=== PATIENT | female | born 1995 | race Caucasian/White ===

== ENCOUNTER 2017-11-17 12:27 | Emergency (ER) | payer SELFPAY | END 2017-11-17 14:14 | disposition left against medical advice (07) | LOC: UCCORT 12:27 | DX: Z53.21 Procedure and treatment not carried out due to patient leaving prior to being seen by health care provider (principal) ==

== ENCOUNTER 2017-12-11 09:49 | Emergency (ER) | payer OTHER ==
[2017-12-11 11:06] VITALS: BP 117/70
[2017-12-11] MEDS ORDERED: predniSONE TAB* 20 MG PO ONE (12:10)
[2017-12-11] MEDS ORDERED: Albuterol HFA INHALER* 8 gm MDI INH ONE (12:10)
--- NOTE | 2017-12-11 12:20 | UC ---
Respiratory Complaint HPI - HPI Summary HPI Summary: 22 yo female with cough x 3 weeks initially had fever and chills no cp or sob she has been wheezing a smoker has had to use inhalers before cough is productive - History of Current Complaint Chief Complaint: UCRespiratory Stated Complaint: CHEST CONGESTION Time Seen by Provider: 12/11/17 12:01 Hx Obtained From: Patient Hx Last Menstrual Period: 11/22/17 Onset/Duration: Gradual Onset, Lasting Weeks Timing: Constant Severity Initially: Mild Severity Currently: Moderate Pain Intensity: 2 Pain Scale Used: 0-10 Numeric Character: Cough: Productive Aggravating Factors: Exertion, Deep Breaths Alleviating Factors: Nothing Associated Signs And Symptoms: Positive: Wheezing, Nasal Congestion Related History: Similar Episode/Dx as: - bronchitis - Allergies/Home Medications Allergies/Adverse Reactions: Allergies Allergy/AdvReac Type Severity Reaction Status Date / Time Venlafaxine [From Effexor] Allergy See Comment Verified 12/11/17 11:07 animals Allergy Congestion Uncoded 12/11/17 11:07 pollen, dust, dander Allergy Congestion Uncoded 12/11/17 11:07 Home Medications: Home Medications guaiFENesin ER TAB [Mucinex*] 600 mg PO DAILY PRN 12/11/17 [History Confirmed ] PMH/Surg Hx/FS Hx/Imm Hx Previously Healthy: Yes Respiratory History: Bronchitis, Pneumonia - Surgical History Surgical History: None Surgery Procedure, Year, and Place: bx of cervix - benign - Family History Known Family History: Positive: Respiratory Disease Negative: Cardiac Disease, Hypertension, Diabetes Family History: family hx of asthma- father and brother,. denies family hx of DM, HTN, CAD - Social History Alcohol Use: Occasionally Substance Use Type: Excessive Caffeine, Marijuana Substance Use Comment - Amount & Last Used: last night Smoking Status (MU): Light Every Day Tobacco Smoker Type: eCigarettes Amount Used/How Often: ~ 2-3 cigs per day Length of Time of Smoking/Using Tobacco: ~ 1 year Cessation Counseling: Patient Advised to Stop Review of Systems Constitutional: Negative Skin: Negative Eyes: Negative ENT: Negative Respiratory: Cough Cardiovascular: Negative Gastrointestinal: Negative Genitourinary: Negative Motor: Negative Neurovascular: Negative Musculoskeletal: Negative Neurological: Negative Psychological: Negative Is Patient Immunocompromised?: No All Other Systems Reviewed And Are Negative: No Physical Exam Triage Information Reviewed: Yes Appearance: Well-Appearing, No Pain Distress, Well-Nourished Vital Signs: Initial Vital Signs Temp 98.9 F 12/11/17 10:52 Pulse 70 12/11/17 10:52 Resp 20 12/11/17 10:52 BP 117/70 12/11/17 10:52 Pulse Ox 100 12/11/17 10:52 Vital Signs Reviewed: Yes ENT: Positive: Hearing grossly normal, TMs normal. Negative: Nasal congestion, Nasal drainage, Dental tenderness, Sinus tenderness Neck exam: Normal Neck: Positive: Supple, Nontender, No Lymphadenopathy Respiratory: Positive: No respiratory distress, No accessory muscle use, Wheezing Cardiovascular: Positive: RRR Abdominal Exam: Normal Musculoskeletal: Positive: ROM Intact, No Edema Neurological: Positive: Alert Psychological Exam: Normal Skin Exam: Normal UC Diagnostic Evaluation - Laboratory O2 Sat by Pulse Oximetry: 100 - normal/not hypoxic Respiratory Course/Dx - Differential Dx/Diagnosis Provider Diagnoses: acute bronchitis with bronchospasm. tobacco use Discharge - Discharge Plan Condition: Stable Disposition: HOME Prescriptions: Amoxicillin PO (*) [Amoxicillin 875 MG (*)] 875 mg PO BID #14 tab Prednisone [Deltasone] 40 mg PO DAILY #8 tab Patient Education Materials: Acute Bronchitis (ED), Bronchospasm (ED) Referrals: No Primary Care Phys,NOPCP [Primary Care Provider] - Additional Instructions: use inhaler as directed YOU NEED TO STOP SMOKING recheck for worsening symptoms recheck in 4-5 days if not back to normal plain robitussin or mucinex
== END 2017-12-11 12:27 | disposition home or self-care (01) ==
LOC: UCCORT 09:49
DX: J20.9 Acute bronchitis, unspecified (principal); Z87.01 Personal history of pneumonia (recurrent); Z87.09 Personal history of other diseases of the respiratory system; F12.90 Cannabis use, unspecified, uncomplicated; F17.210 Nicotine dependence, cigarettes, uncomplicated
CPT/HCPCS: 99212; A9270-GY; G0463; J7512